=== PATIENT | female | born 1950 | race Caucasian/White ===

== ENCOUNTER 2018-03-23 05:16 | Emergency (ER) | payer MEDICARE ==
[2018-03-23] MEDS ORDERED: Adenosine* 3 MG/ML VIAL ONE (05:30)
[2018-03-23] MEDS ORDERED: NS 0.9% 1000 ML* 1,000 ML IV ONE (05:30)
[2018-03-23] MEDS ORDERED: Adenosine* 3 MG/ML VIAL IV PUSH ONE (05:31)
[2018-03-23 05:41] LABS: ABS Basophils 0 10^3/ul (0-0.2); ABS Eosinophils 0.4 10^3/ul (0-0.6); ABS Monocytes 0.8 10^3/ul (0-0.8); ABS Neutrophils 3.4 10^3/ul (1.5-7.7); ABS Nucleated RBC 0 10^3/ul; Eosinophil % 5.1 % (0-6); Hematocrit 43 % (35-47); Hemoglobin 14.7 g/dl (12.0-16.0); Lymphocyte % 39.3 % (25-47); Mean Corpuscular HGB Conc 34 g/dl (31-36); Mean Corpuscular Hemoglobin 32 pg (27-31); Mean Corpuscular Volume 93 fL (80-97); Mean Platelet Volume 6.9 um3 (7.4-10.4); Nucleated Red Blood Cells % 0.1; Platelet Count 307 10^3/ul (150-450); Red Blood Count 4.63 10^6/ul (4.00-5.40); Red Cell Distribution Width 13 % (10.5-15); White Blood Count 7.6 10^3/ul (3.5-10.8)
--- NOTE | 2018-03-23 05:56 | ED ---
Palpitations / Dysrhythmia - HPI Summary HPI Summary: Pt. is a 68 y.o female who presents to the ER for palpitations that woke her up early this morning. He notes she has felt her heart beating irregular in the past but it has not persisted like it did today. Denies chest pain or shortness of breath. She had associated symptoms of dizziness. History of hypertension. Denies recent illness, abd. pain, N/V/D. Symptoms are moderate in severity. No current modifying factors. - History of Current Complaint Chief Complaint: EDDysrhythmPalp Time Seen by Provider: 03/23/18 05:51 Hx Obtained From: Patient - Allergy/Home Medications Allergies/Adverse Reactions: Allergies Allergy/AdvReac Type Severity Reaction Status Date / Time aspirin [From Percodan] Allergy Unknown Verified 03/23/18 05:21 Reaction Details oxycodone [From Percodan] Allergy Unknown Verified 03/23/18 05:21 Reaction Details Home Medications: Home Medications Lisinopril 10 mg PO DAILY 03/23/18 [History Confirmed 03/23/18] Triamterene/HCTZ 37.5-25 MG* 1 tab PO DAILY 03/23/18 [History Confirmed 03/23/18 ] PMH/Surg Hx/FS Hx/Imm Hx Previously Healthy: Yes Infectious Disease History: No Infectious Disease History: Denies: Traveled Outside the [place] in Last 30 Days - Social History Occupation: Retired Lives: With Family Alcohol Use: Daily Substance Use Type: Reports: None Smoking Status (MU): Never Smoked Tobacco Review of Systems Constitutional: Negative Eyes: Negative ENT: Negative Positive: Palpitations. Negative: Chest Pain Respiratory: Negative Negative: Shortness Of Breath, Cough Gastrointestinal: Negative Negative: Abdominal Pain, Vomiting, Diarrhea Genitourinary: Negative Neurological: Negative All Other Systems Reviewed And Are Negative: Yes Physical Exam Triage Information Reviewed: Yes Vital Signs On Initial Exam: Initial Vitals Temp Pulse Resp BP Pulse Ox 97.9 F 185 20 150/121 96 03/23/18 05:19 03/23/18 05:19 03/23/18 05:19 03/23/18 05:19 03/23/18 05:19 Vital Signs Reviewed: Yes Appearance: Positive: Well-Appearing - Pt. sitting up in bed in NAD. Skin: Positive: Warm, Dry Head/Face: Positive: Normal Head/Face Inspection Eyes: Positive: Normal, EOMI Neck: Positive: Supple Respiratory/Lung Sounds: Positive: Clear to Auscultation, Breath Sounds Present Cardiovascular: Positive: Normal, RRR Abdomen Description: Positive: Nontender, No Organomegaly Musculoskeletal: Negative: Edema Left, Edema Right Neurological: Positive: Normal, CN Intact II-III Psychiatric: Positive: Affect/Mood Appropriate - Siri Coma Scale Best Eye Response: 4 - Spontaneous Best Motor Response: 6 - Obeys Commands Best Verbal Response: 5 - Oriented Coma Scale Total: 15 Diagnostics - Vital Signs Vital Signs Temp Pulse Resp BP Pulse Ox 03/23/18 05:35 106 15 153/94 95 03/23/18 05:32 131 21 157/131 94 03/23/18 05:19 97.9 F 185 20 150/121 96 - Laboratory Lab Results: Lab Results 03/23/18 Range/Units 05:32 WBC 7.6 (3.5-10.8) 10^3/ul RBC 4.63 (4.00-5.40) 10^6/ul Hgb 14.7 (12.0-16.0) g/dl Hct 43 (35-47) % MCV 93 (80-97) fL MCH 32 H (27-31) pg MCHC 34 (31-36) g/dl RDW 13 (10.5-15) % Plt Count 307 (150-450) 10^3/ul MPV 6.9 L (7.4-10.4) um3 Neut % (Auto) 44.5 (38-83) % Lymph % (Auto) 39.3 (25-47) % [place] % (Auto) 10.5 H (0-7) % Eos % (Auto) 5.1 (0-6) % Baso % (Auto) 0.6 (0-2) % Absolute Neuts (auto) 3.4 (1.5-7.7) 10^3/ul Absolute Lymphs (auto) 3.0 (1.0-4.8) 10^3/ul Absolute Monos (auto) 0.8 (0-0.8) 10^3/ul Absolute Eos (auto) 0.4 (0-0.6) 10^3/ul Absolute Basos (auto) 0 (0-0.2) 10^3/ul Absolute Nucleated RBC 0 10^3/ul Nucleated RBC % 0.1 Result Diagrams: 03/23/18 05:32 03/23/18 05:32 Lab Statement: Any lab studies that have been ordered have been reviewed, and results considered in the medical decision making process. Course/Dx - Course Course Of Treatment: Pt. presenting to the ER for palpations. ECG done at 05 shows an SVT of 178bpm. Pt. was placed on monitor and IV placed. Pt. was able to break rhythm with vagal manuver and she returned to normal sinus rhtyhm. Will continue monitor. Labs are unremarkable. Repeat ECG at 07 shows a sinus rhythm of 88bpm, appropriate intervals, normal axis, no ST elvation or depression. Pt. was examined by Dr. Sandy as well. Will dc home to [facility] with PCP. To return to ER if symptoms change or worsen. - Diagnoses Differential Diagnosis/HQI/PQRI: Positive: AV Block, Cardiomyopathy, Hypokalemia , Hypoxia, Panic Disorder, Paroxymal SVT Provider Diagnoses: SVT (supraventricular tachycardia) Discharge - Sign-Out/Discharge Documenting (check all that apply): Patient Departure - Discharge Plan Condition: Good Disposition: HOME Patient Education Materials: Supraventricular Tachycardia (ED) Referrals: No Primary Care Phys,NOPCP [Primary Care Provider] - Additional Instructions: Call your PCP today to schedule a close follow up appointment Return to the ER if symptoms change or worsen - Billing Disposition and Condition Condition: GOOD Disposition: Home
[2018-03-23 06:06] LABS: EGFR Non-African American 65.2 (>60)
[2018-03-23 07:55] VITALS: BP 131/80
== END 2018-03-23 07:45 | disposition home or self-care (01) ==
LOC: ED 05:16
DX: I47.1 Supraventricular tachycardia (principal); I10 Essential (primary) hypertension
CPT/HCPCS: 36415; 80053; 83605; 83880; 84443; 84484; 85025; 93005; 99283; J0153